=== PATIENT | male | born 1945 | race Two or more races ===

== ENCOUNTER 2021-06-20 16:52 | Emergency (ER) | payer OTHER ==
[~2021-06-20] VITALS: Ht 182.9 cm; Wt 56.2 kg
--- NOTE | 2021-06-20 16:52 | NUR ---
PT BIBRA 80 FROM HOME C/O WEAKNESS X 3 DAYS. PT IS AAOX4, NOT IN RESPIRATORY DISTRESS, HOOKED TO FINGERPRINT CLASSIFIER, KEPT RESTED AND COMFORTABLE. WILL CONTINUE TO MONITOR.
--- NOTE | 2021-06-20 17:20 | NUR ---
IV LINE ESTABLISHED BLOOD DRAWN AND SENT TO LAB.
--- NOTE | 2021-06-20 17:28 | NUR ---
MAHIN SPECIMEN COLLECTED AND SEN TO LAB.
[2021-06-20] MEDS ORDERED: IV NS 0.9% 1,000 ML BAG IV ONE (17:30)
--- NOTE | 2021-06-20 17:30 | NUR ---
LANDSCAPE ARCHITECT AT BEDSIDE FOR XRAY.
[2021-06-20 17:50] LABS: BASOPHILS % (AUTO) 0.4 % (0.0-2.0); EOSINOPHILS % (AUTO) 0.3 % (0.0-6.0); HEMATOCRIT 23 % (39-51); HEMOGLOBIN 7.2 g/dL (13.5-17.5); LYMPHOCYTES # (AUTO) 2.3 K/uL (0.8-4.8); LYMPHOCYTES % (AUTO) 29.7 % (20.0-44.0); MEAN CORPUSCULAR HGB CONC 32 g/dl (31.0-36.0); MEAN CORPUSCULAR VOLUME 90 fL (80-96); MONOCYTES % (AUTO) 12.5 % (2.0-12.0); NEUTROPHILS # (AUTO) 4.4 K/uL (1.8-8.9); NEUTROPHILS % (AUTO) 57.1 % (43.0-81.0); PLATELET COUNT (AUTO) 507 K/uL (150-450); RED BLOOD CELL COUNT(AUTO) 2.52 MIL/uL (4.5-6.0); WHITE BLOOD COUNT (AUTO) 7.7 K/uL (4.3-11.0)
[2021-06-20 18:11] LABS: CALCIUM, SERUM 8.4 mg/dL (8.5-10.1); CARBON DIOXIDE 15 mmol/L (21-32); CHLORIDE 102 mmol/L (98-107); CREATININE 1.2 mg/dL (0.6-1.3); GLUCOSE 140 mg/dL (74-106); POTASSIUM 4.2 mmol/L (3.5-5.1); SODIUM SERUM 132 mmol/L (136-145); UREA NITROGEN, BLOOD 19 mg/dL (7-18)
[2021-06-20 18:16] LABS: BILIRUBIN,URINE NEGATIVE (NEGATIVE); COLOR,URINE YELLOW (YELLOW); LEUKOCYTE ESTERASE ,URINE NEGATIVE (NEGATIVE); NITRITE, URINE NEGATIVE (NEGATIVE); PH,URINE 6.5 (5.0-8.0); PROTEIN,URINE 30 mg/dl (NEGATIVE); UGLUCOSE NEGATIVE (NEGATIVE)
--- NOTE | 2021-06-20 18:22 | NUR ---
PT IS WHEELED TO CT SCAN VIA [facility].
[2021-06-20 18:25] LABS: ALANINE AMINOTRANSFERASE 16 U/L (12-78); ALBUMIN 1.7 g/dL (3.4-5.0); ALKALINE PHOSPHATASE 103 U/L (46-116); ASPARTATE AMINOTRANSFERASE 22 U/L (15-37); BILIRUBIN,DIRECT 0.1 mg/dL (0.0-0.2); BILIRUBIN,TOTAL 0.2 mg/dL (0.2-1.0); TOTAL PROTEIN, SERUM 7.4 g/dL (6.4-8.2)
--- NOTE | 2021-06-20 18:41 | NUR ---
PT RETURNED TO ER BED 7 VIA [facility]
[2021-06-20 18:51] LABS: BACTERIA,URINE None seen /HPF (None Seen); RBC,URINE 0-2 /HPF (0-2); WBC,URINE 0-2 /HPF (0-3)
[2021-06-20 18:52] LABS: MUCUS,URINE Few /LPF (None Seen); URINE AMORPHOUS URATE Few /HPF (None Seen)
[2021-06-20] MEDS ORDERED: VANCOMYCIN 1 GM in IV D5W 250 ML IV SCH (19:00)
[2021-06-20] MEDS ORDERED: IOHEXOL-350 100 ML VIAL IV ONE (19:08)
--- NOTE | 2021-06-20 19:16 | NUR ---
CALLED [facility] [phone]
--- NOTE | 2021-06-20 20:08 | NUR ---
PT RETURNED TO ER BED [address]
--- NOTE | 2021-06-20 21:22 | NUR ---
BLEACH BOILER PULLER AT PT'S BEDSIDE
[2021-06-20] MEDS ORDERED: VANCOMYCIN 1 GM VIAL ONE (21:26)
[2021-06-20] MEDS ORDERED: CEFEPIME 1 GM VIAL ONE (21:26)
--- NOTE | 2021-06-20 21:37 | NUR ---
ROOM 105
--- NOTE | 2021-06-20 22:54 | NUR ---
ACCEPTED AT [facility] / ROOM 5604/ NUMBER FOR REPORT: [phone] / ACCEPTING DR. FRANCOIS / ETA 0330 [facility]. SPOKE WITH SAMMY.
--- NOTE | 2021-06-20 23:06 | NUR ---
STOOL OB COLLECTED BY ALEXANDER PETTIT AND SENT TO LAB
--- NOTE | 2021-06-20 23:30 | NUR ---
PT SIGNED CONEST FOR BLOOD TRANFUSION AND VERBALIZED UNDERSTANDING PRE BLOODTRANSFUSION PRC VS: BP131/69 HR 101 SPO2 96% ON RA TEMP 98.7
--- NOTE | 2021-06-20 23:40 | NUR ---
INITIATIATED BLOOD TRANSFUSION RBC AND VERIFIED PRODUCT WITH 2 RNS RBC @ 60 ML/HR PER PROTOCOL. TOLERATING WELL. VSS: BP 128/66 HR 100 SPO2 97% ON RA AFEBRILE 97.8 NO S/SX OF ADVERSE REACTION TO BLOOD TRANSFUSION AT THIS TIME. NO N/V/D/, SOB OR RASHES. WILL CONT TO MONITOR.
--- NOTE | 2021-06-21 01:15 | NUR ---
BLOOD TRANSFUSION RBC COMPLETED & TOLERATING WELL. NO S/SX OF ADVERSE REACTION TO BLOOD TRANSFUSION AT THIS TIME. NO N/V/D/, SOB OR RASHES. VSS: BP 121/68 HR 90 SPO2 98% ON RA AFEBRILE 97.8
--- NOTE | 2021-06-21 01:34 | NUR ---
REPORT GIVEN TO LEANDRA HERMAN FROM [facility] [phone]
--- NOTE | 2021-06-21 03:22 | NUR ---
REPORT GIVEN TO EMS AT BEDSIDE
--- NOTE | 2021-06-21 03:38 | NUR ---
PT PICKED UP BY 2 DOCUMENTATION COORDINATOR PT [facility] [address] [facility] RE[facility] GIVEN TO EMT. PT IN STABLE CONDITION AT DISCHARGE.
[2021-06-21 03:41] VITALS: BP 137/71
== END 2021-06-21 03:44 | disposition short-term general hospital (02) ==
LOC: ER 17:10
DX: D64.9 Anemia, unspecified (principal); C64.9 Malignant neoplasm of unspecified kidney, except renal pelvis; C78.7 Secondary malignant neoplasm of liver and intrahepatic bile duct; C78.00 Secondary malignant neoplasm of unspecified lung; I26.99 Other pulmonary embolism without acute cor pulmonale; C79.51 Secondary malignant neoplasm of bone; R00.0 Tachycardia, unspecified; E87.2 Acidosis; R79.1 Abnormal coagulation profile; U07.1 COVID-19; E11.9 Type 2 diabetes mellitus without complications; Z95.5 Presence of coronary angioplasty implant and graft; Z79.899 Other long term (current) drug therapy
CPT/HCPCS: 36415; 36430; 70450; 71045; 71275; 72131; 72192; 80048; 80076; 81001; 83605 ×2; 84484; 85025; 85378; 86850; 86923; 87426; 93005; 96361; 96365; 96368; 99285; C9803; J0692; J3370; J7030; J7050; J7060; P9016; Q9967

== ENCOUNTER 2022-02-10 18:20 | Emergency (ER) | payer OTHER ==
[~2022-02-10] VITALS: Ht 175.3 cm; Wt 57.6 kg
--- NOTE | 2022-02-10 18:42 | NUR ---
TO ER BED 6, [id number] FROM HOME C/O WEAKNESS X2WK, HX OF KIDNEY CANCER, NO CHEMO X2WKS BECAUSE OF WEAKNESS, AAOX4, BREATHING EVEN AND NON LABORED, CONNECTED TO MONITOR, AWAITING MD KAY
[2022-02-10 18:47] VITALS: BP 101/43
--- NOTE | 2022-02-10 19:09 | NUR ---
SALINE LOCK ESTABLISHED, BLOOD DRAWN AND SENT TO LAB
--- NOTE | 2022-02-10 19:14 | NUR ---
COVID SWAB DONE AND SENT TO LAB
[2022-02-10 20:11] LABS: CALCIUM, SERUM 9.4 mg/dL (8.5-10.1); CREATININE 1.3 mg/dL (0.6-1.3); POTASSIUM 5.4 mmol/L (3.5-5.1)
[2022-02-10 20:16] LABS: ALBUMIN 1.7 g/dL (3.4-5.0); BASOPHILS % (AUTO) 0.3 % (0.0-2.0); BILIRUBIN,DIRECT 0.2 mg/dL (0.0-0.2); BILIRUBIN,TOTAL 0.3 mg/dL (0.2-1.0); EOSINOPHILS % (AUTO) 0.5 % (0.0-6.0); LYMPHOCYTES # (AUTO) 1.6 K/uL (0.8-4.8); LYMPHOCYTES % (AUTO) 15.2 % (20.0-44.0); MEAN CORPUSCULAR HGB CONC 33 g/dl (31.0-36.0); MEAN CORPUSCULAR VOLUME 84 fL (80-96); MONOCYTES # (AUTO) 1.4 K/uL (0.1-1.30); MONOCYTES % (AUTO) 13.4 % (2.0-12.0); NEUTROPHILS # (AUTO) 7.2 K/uL (1.8-8.9); NEUTROPHILS % (AUTO) 70.6 % (43.0-81.0); PLATELET COUNT (AUTO) 487 K/uL (150-450); RED BLOOD CELL COUNT(AUTO) 2.23 MIL/uL (4.5-6.0); WHITE BLOOD COUNT (AUTO) 10.3 K/uL (4.3-11.0)
[2022-02-10 20:19] LABS: HEMOGLOBIN 6.1 g/dL (13.5-17.5)
--- NOTE | 2022-02-10 20:19 | NUR ---
CRITICAL LAB RESULT: HGB 6.[address] JULIO PETTIT AWARE
[2022-02-10 20:20] LABS: HEMATOCRIT 19 % (39-51)
[2022-02-10] MEDS ORDERED: SODIUM POLYSTYRENE SULFONATE 15 G/60 ML BOTTLE PO ONE (20:30)
[2022-02-10] MEDS ORDERED: IV NS 0.9% 1,000 ML BAG IV ONE (20:30)
[2022-02-10] MEDS ORDERED: SODIUM POLYSTYRENE SULFONATE 15 G/60 ML BOTTLE ONE (20:33)
--- NOTE | 2022-02-10 20:35 | NUR ---
SCRAP CRUSHER AT PT'S BEDSIDE
--- NOTE | 2022-02-10 20:44 | NUR ---
CONSENT FOR BLOOD TRANSFUSION OBTAINED FROM PT.
--- NOTE | 2022-02-10 20:59 | NUR ---
CONTACTED [facility] FOR ADMISSION. PER JUVE CASE WAS OPEN AND PANEL CALL WAS SET UP.
[2022-02-10 21:02] LABS: BAND % (MANUAL) 2 % (0.0-5.0); LYMPHOCYTES % (MANUAL) 8 % (16-48); MONOCYTES % (MANUAL) 8 % (0-11.0); NEUTROPHILS % (MANUAL) 82 (42-76)
--- NOTE | 2022-02-10 21:45 | NUR ---
INITIATED RBC X1 UNIT. PT SIGNED BLOOD TRANSFUSION. WILL MONITOR FOR A/R. VSS.
--- NOTE | 2022-02-10 21:48 | NUR ---
ER TO [place] [facility] [place] [facility] [place] LOWRY [phone] ETA [phone]
--- NOTE | 2022-02-10 22:35 | NUR ---
[facility] AT PT'S BEDSIDE TO TRANSFER PT TO [facility]. STOPPED BLOOD TRANSFUSION. NO A/R NOTED. VSS.
== END 2022-02-11 02:47 | disposition short-term general hospital (02) ==
LOC: ER 18:46
DX: R53.1 Weakness (principal); D64.9 Anemia, unspecified; E87.5 Hyperkalemia; C64.9 Malignant neoplasm of unspecified kidney, except renal pelvis; C78.00 Secondary malignant neoplasm of unspecified lung; C78.7 Secondary malignant neoplasm of liver and intrahepatic bile duct; C79.51 Secondary malignant neoplasm of bone; Z95.5 Presence of coronary angioplasty implant and graft; E11.9 Type 2 diabetes mellitus without complications; Z20.822 Contact with and (suspected) exposure to COVID-19
CPT/HCPCS: 99285; 96360; 36430; 93005; 71045; 85025; 80048; 80076; 85007; 36415; 85730; 86850; 87426; 86923; J7030; J7050; P9016; C9803

== ENCOUNTER 2022-03-03 09:58 | Emergency (ER) | payer OTHER ==
[~2022-03-03] VITALS: Ht 175.3 cm; Wt 55.8 kg
--- NOTE | 2022-03-03 10:07 | NUR ---
TO ER BED 9. BIB RA 80 FROM HOME,C/O "LETHARGY" X 2 DAYS,[facility] PATH[facility] ON, [facility], NS 500 ML GIVEN LAN ANALYST, BLOOD SUGAR 180. PT IS A&OX2, STATED HE HAS PAIN ON HIS BITTOCK 02/27. ATTACHED TO MONITOR. DAVIS IN PLACE. AWAITING MD ORDERS.
--- NOTE | 2022-03-03 10:14 | NUR ---
IV ESTABLISHED L WRIST 18G. LABS DRAWN AND SENT.
--- NOTE | 2022-03-03 10:17 | NUR ---
URINE COLLECTED AND SENT
--- NOTE | 2022-03-03 10:21 | NUR ---
CALLED [phone] FOR FAMILY LEFT .
--- NOTE | 2022-03-03 10:25 | NUR ---
CALLED [facility] [phone] ONEL WILL SEND OVER SNAP SHOT OF PT.
[2022-03-03 10:54] LABS: BASOPHILS % (AUTO) 0.2 % (0.0-2.0); EOSINOPHILS % (AUTO) 0.2 % (0.0-6.0); LYMPHOCYTES # (AUTO) 1.3 K/uL (0.8-4.8); LYMPHOCYTES % (AUTO) 14.5 % (20.0-44.0); MEAN CORPUSCULAR HGB CONC 31 g/dl (31.0-36.0); MEAN CORPUSCULAR VOLUME 89 fL (80-96); MONOCYTES # (AUTO) 1.1 K/uL (0.1-1.30); MONOCYTES % (AUTO) 13.1 % (2.0-12.0); NEUTROPHILS # (AUTO) 6.3 K/uL (1.8-8.9); PLATELET COUNT (AUTO) 409 K/uL (150-450); RED BLOOD CELL COUNT(AUTO) 2.26 MIL/uL (4.5-6.0); WHITE BLOOD COUNT (AUTO) 8.8 K/uL (4.3-11.0)
[2022-03-03] MEDS ORDERED: MORPHINE SULFATE INJ 2 MG/ML DISP.SYRIN IV ONE ×2 (11:00→13:00)
[2022-03-03] MEDS ORDERED: MORPHINE SULFATE INJ 4 MG/ML DISP.SYRIN ONE ×2 (11:04→12:54)
[2022-03-03 11:08] LABS: ALANINE AMINOTRANSFERASE 11 U/L (12-78); ALKALINE PHOSPHATASE 139 U/L (46-116); ASPARTATE AMINOTRANSFERASE 15 U/L (15-37); BILIRUBIN,DIRECT 0.2 mg/dL (0.0-0.2); BILIRUBIN,TOTAL 0.4 mg/dL (0.2-1.0); CALCIUM, SERUM 9.5 mg/dL (8.5-10.1); CARBON DIOXIDE 21 mmol/L (21-32); CHLORIDE 102 mmol/L (98-107); CREATININE 1.5 mg/dL (0.6-1.3); GLUCOSE 131 mg/dL (74-106); POTASSIUM 5.1 mmol/L (3.5-5.1); SODIUM SERUM 132 mmol/L (136-145); UREA NITROGEN, BLOOD 57 mg/dL (7-18)
[2022-03-03 11:09] LABS: ALBUMIN 1.6 g/dL (3.4-5.0); TOTAL PROTEIN, SERUM 6.5 g/dL (6.4-8.2)
[2022-03-03 11:17] LABS: HEMATOCRIT 20 % (39-51); HEMOGLOBIN 6.3 g/dL (13.5-17.5)
--- NOTE | 2022-03-03 11:22 | NUR ---
CALLED [facility] [phone] PER CARINE HOOKER WILL CALL US BACK.
--- NOTE | 2022-03-03 11:43 | NUR ---
COVID TEST COLLECTED AND SENT
[2022-03-03 12:05] LABS: BAND % (MANUAL) 2 % (0.0-5.0); BASOPHILS % (MANUAL) 0 % (0.0-2.0); EOSINOPHILS % (MANUAL) 0 % (0-4); LYMPHOCYTES % (MANUAL) 16 % (16-48); MONOCYTES % (MANUAL) 12 % (0-11.0); NEUTROPHILS % (MANUAL) 70 (42-76)
--- NOTE | 2022-03-03 12:31 | NUR ---
SYLVESTER FROM [facility] CALLED PT ACCPTED TO [place] UNDER DR. DELANEY PLEASE CALL [phone] FOR REPORT. [facility] WILL TRANSPORT AT 1325.
--- NOTE | 2022-03-03 13:38 | NUR ---
REPORT GIVEN TO ESTEPHANIA AT [facility]
[2022-03-03 14:32] VITALS: BP 104/49
--- NOTE | 2022-03-03 14:59 | NUR ---
REPORT GIVEN TO MAXINE, PT BEING TRANSFERRED TO [facility] VIA [facility] [place].
== END 2022-03-03 15:01 | disposition short-term general hospital (02) ==
LOC: ER 10:00
DX: D64.9 Anemia, unspecified (principal); Z95.5 Presence of coronary angioplasty implant and graft; Z85.528 Personal history of other malignant neoplasm of kidney; Z85.05 Personal history of malignant neoplasm of liver; E11.9 Type 2 diabetes mellitus without complications; Z20.822 Contact with and (suspected) exposure to COVID-19
CPT/HCPCS: 99291; 96374; 93005; 96376; 85025; 80048; 80076; 85007; 36415; 85730; 86850; 87426; 86923; J2270 ×2; P9016; C9803; J7050